=== PATIENT | male | born 2000 | race Caucasian/White ===

== ENCOUNTER 2021-09-05 17:16 | Emergency (ER) | payer SELFPAY ==
[~2021-09-05] VITALS: Ht 172.7 cm; Wt 86.4 kg
[2021-09-05 18:46] VITALS: BP 132/78; PULSE 80
== END 2021-09-05 18:46 | disposition home or self-care (01) ==
LOC: COL.ER 17:16
DX: S63.284A Dislocation of proximal interphalangeal joint of right ring finger, initial encounter (principal); W21.05XA Struck by basketball, initial encounter; Y93.67 Activity, basketball